=== PATIENT | female | born 1950 | race Caucasian/White ===

== ENCOUNTER 2020-04-21 05:31 | Day surgery (SDC) | payer MEDICARE ==
[2020-04-18 16:21] VITALS: BMI 26.4
[~2020-04-21 05:31] MED LIST: ACETAMINOPHEN TAB 500 MG TAB PO ONE; GABAPENTIN 300 MG CAP PO ONE; MELOXICAM 7.5 MG TAB PO ONE; ONDANSETRON 4 MG/2 ML VIAL IVP ONE; TRANEXAMIC ACID 1,000 MG in SODIUM CHLORIDE 0.9% 100 ML IVPB ONE
[2020-04-21] MEDS ORDERED: HYDROmorphone 0.5 MG/0.5 ML SYRINGE IVP PRN ×4 (05:33→09:04)
[2020-04-21] MEDS ORDERED: ONDANSETRON 4 MG/2 ML VIAL IVP ONE ×2 (05:33→11:05)
[2020-04-21] MEDS ORDERED: LACTATED RINGERS 1,000 ML IV SCH (05:33)
[2020-04-21] MEDS ORDERED: DEXAMETHASONE SOD PHOSPHATE 10 MG/ML 1 ML VIAL IV ONE (05:33)
[2020-04-21] MEDS ORDERED: MIDAZOLAM 2 MG/2 ML VIAL IV PRN (05:33)
[2020-04-21] MEDS ORDERED: ONDANSETRON 4 MG/2 ML VIAL ONE (05:51)
[2020-04-21] MEDS ORDERED: ACETAMINOPHEN TAB 500 MG TAB ONE (05:51)
[2020-04-21] MEDS ORDERED: ROPIVACAINE 246.25 MG, EPINEPHrine 0.5 MG, KETOROLAC 30 MG, cloNIDine HCL/PF 80 MCG, WA... MISCELLANE ONE ×5 (06:00)
[2020-04-21] MEDS ORDERED: LIDOCAINE 1% (10MG/ML) FOR IV START INTRADERMA ONE (06:04)
[2020-04-21] MEDS ORDERED: MIDAZOLAM 2 MG/2 ML VIAL IV ONE (06:52)
[2020-04-21] MEDS ORDERED: SCOPOLAMINE 1.5MG/72HR PATCH TRANSDERM ONE (07:00)
[2020-04-21] MEDS ORDERED: PHENYLEPHRINE-0.9% NACL SYG 1 MG/10 ML SYRINGE ONE (07:02)
[2020-04-21] MEDS ORDERED: MIDAZOLAM 2 MG/2 ML VIAL ONE (07:02)
[2020-04-21] MEDS ORDERED: PROPOFOL 10 MG/ML 20 ML VIAL IV ONE (07:02)
[2020-04-21] MEDS ORDERED: diphenhydrAMINE 50 MG/ML 1 ML VIAL ONE (07:02)
[2020-04-21] MEDS ORDERED: ceFAZolin 3,000 MG in SODIUM CHLORIDE 0.9% IRRIGATIO 3,000 ML IRRIGATION ONE (08:00)
[2020-04-21] MEDS ORDERED: LACTATED RINGERS 1,000 ML IV ONE (08:26)
[2020-04-21] MEDS ORDERED: ROPIVACAINE 0.2%-NS ON-Q PUMP 1,090 MG, EMPTY PAIN BALL 1 EACH MISCELLANE PRN (09:03)
[2020-04-21] MEDS ORDERED: NA PHOS,M-B/NA PHOS,DI-BA 133 ML ENEMA RECTAL PRN (09:04)
[2020-04-21] MEDS ORDERED: HYDROcodone/APAP 10-325MG 1 EACH TAB PO PRN (09:04)
[2020-04-21] MEDS ORDERED: ONDANSETRON 4 MG/2 ML VIAL IVP PRN (09:04)
[2020-04-21] MEDS ORDERED: MAGNESIUM HYDROXIDE 2,400 MG/10 ML CUP PO PRN (09:04)
[2020-04-21] MEDS ORDERED: NALOXONE 0.4 MG/ML 1 ML VIAL IV PRN (09:04)
[2020-04-21] MEDS ORDERED: diazePAM 5 MG TAB PO PRN (09:04)
[2020-04-21] MEDS ORDERED: bisacodyL 10 MG SUPP RECTAL PRN (09:04)
[2020-04-21] MEDS ORDERED: traMADol 50 MG TAB PO PRN (09:04)
[2020-04-21] MEDS ORDERED: HYDROcodone/APAP 5-325MG 1 EACH TAB PO PRN (09:04)
[2020-04-21] MEDS ORDERED: ACETAMINOPHEN TAB 325 MG TAB PO PRN (09:04)
[2020-04-21] MEDS ORDERED: TEMAZEPAM 15 MG CAP PO PRN (09:04)
--- NOTE | 2020-04-21 09:11 | P.ANPRN ---
Procedure Note - Anesthesia - Nerve Block Performed Right Adductor Canal Infusion Time Out Performed: Yes Date of Procedure: 04/21/20 Procedure Start Time: 06:42 Procedure Stop Time: 06:54 Location of Patient: PreOp Indication: Acute Post-Operative Pain, Requested by Surgeon Sedation Type: Sedate with meaningful contact maintained Preparation: Sterile Prep, Sterile Dressing Position: Supine Catheter: Indwelling Needle Types: UniServityy Needle Gauge: 18 Ultrasound used to visualize needle placement: Yes Ultrasound used to observe medication spread: Yes Injectate: 0.5% Ropivacaine (see comment for volume) (20 ml) Blood Aspirated: No Pain Paresthesia on Injection Noted: No Resistance on Injection: Normal Image Stored and Saved: Yes Events: Uneventful and Well Tolerated
--- NOTE | 2020-04-21 10:00 | XR ---
Right knee HISTORY: Status post right knee arthroplasty 2 views the right knee Patient is status post right knee arthroplasty. There is anatomic alignment. Lucency is present in th e soft tissues. IMPRESSION: Orthopedic follow-up
--- NOTE | 2020-04-21 11:03 | OP ---
OPERATIVE REPORT DATE OF PROCEDURE: 04/21/2020 SURGEON: Ritchie Steiner M.D. MANUFACTURING COORDINATOR: ADELAIDE Quintana. PREOPERATIVE DIAGNOSIS: Right knee osteoarthrosis. POSTOPERATIVE DIAGNOSIS: Right knee osteoarthrosis. OPERATION: Right total knee arthroplasty. ANESTHESIA: Spinal with sedation. ESTIMATED BLOOD LOSS: 100 mL. TOURNIQUET: Tourniquet time was 49 minutes at 250 mmHg. COMPLICATIONS: None apparent. DRAINS: None. DISPOSITION: Postanesthesia care unit. INDICATIONS: Chana is a very pleasant 69-year-old female with longstanding right knee pain. History and physical examination are consistent with advanced right knee osteoarthrosis. She has been through significant nonoperative management up to this point. Further treatment options were discussed and she has decided to go forward with a right total knee arthroplasty. Risks of procedure were discussed with her in detail. These risks include, but are not limited to risk of infection, nerve damage, bleeding, pain, and a small risk of deep vein thrombosis which could lead to fatal pulmonary embolism. There is also risk of loosening of the implant which could require revision operation. The patient understands these risks. All of her questions were answered to her satisfaction. Appropriate informed consent was obtained. DESCRIPTION OF PROCEDURE: The patient was identified in preop holding area. Surgical site was marked by both the patient and myself. She was given 2 g of Ancef IV for prophylactic purposes. She was then transferred to the operative suite. She was placed supine on the operating room table. Spinal anesthetic was then administered and dosed per the Anesthesia Department without apparent complication. Examination under anesthesia was then performed. The patient was 2-3 degrees shy of full extension. She had 100 degrees of flexion. The medial collateral ligament, lateral collateral ligament and posterior cruciate ligaments were stable. Tourniquet was then placed high on the right upper thigh, well-padded in preparation for surgery. The patient's right lower extremity was then prepped and draped in usual sterile fashion. Standard surgical pause was undertaken to ensure that we were operating on the correct site and that appropriate preoperative antibiotics had been given. All staff in room were in agreement and we proceeded. The outlines of the patella were marked with a surgical pen. A planned 12 cm vertical incision centered over the patella was marked with surgical pen. Leg was exsanguinated with an Esmarch dressing. The knee was then flexed and the tourniquet was inflated to 250 mmHg. The total tourniquet time for the procedure was 49 minutes. Incision was then made with a 10 blade scalpel. Dissection was carried down sharply to the overlying fascia. Great care was taken to minimize the skin flaps. The knee was then exposed using a standard medial parapatellar approach. A small cuff of quadriceps tendon was then left for suturing. She was in a bit of varus preoperatively. A standard medial release was then made. Superficial medial collateral ligament was dissected off the bone around to the posterior aspect of the proximal tibia. The medial meniscus was then excised as well. The lateral meniscus was also released anteriorly. The leg was then externally rotated. The patella was everted and the knee was flexed. Retractors were then placed to protect the collateral ligaments. I then proceeded to remove the infrapatellar fat pad. This was excised sharply tangentially with the fibers of the patellar tendon. I then proceeded to remove peripheral osteophytes. This is done with a rongeur. I then proceed with distal femoral resection. She did have near full extension. The planned 9 mm resection was then done. The femoral canal was then entered in the midline of the femur approximately 10 mm anterior to the origin of the posterior cruciate ligament. The rodolfo was then advanced onto the center of the femur and placed intramedullary. Based on the preoperative radiographs, the angle between the anatomic and mechanical axis of the femur was approximately 4-5 degrees. The valgus angle of the distal femoral cutting guide was then set at 4 degrees for the right knee. The distal femoral cutting guide was then advanced over the intramedullary rodolfo. This was seated firmly against the femur. Then as mentioned, planned to take 9 mm off the distal femur. The cutting block was then secured onto the femur with pins. The jig was then removed. The distal femoral cut was made through the slot of the block. The pins were then removed. The distal femoral cutting block was removed. The accuracy of the distal femoral cuts was checked with 2 flat bars. I then proceed with femoral sizing. Posterior referencing sizing guide was held firmly against the resected distal surface of the femur. The posterior condyles were resting on the posterior plane of the guide. The sizing stylus was then placed onto the anterior femur. The size was measured as a size 7. I then assessed for femoral rotation. Plan was for 3 degrees external rotation. Three degrees external rotation was placed onto the jig. These holes were then marked. I then confirmed the rotation by 3 separate methods. First this was done using epicondylar axis as well as Whitesides line and posterior referencing and it was deemed that the external rotation was proper. I then went forward with placing the femoral cutting block. This was placed over the previously placed pin holes. The Hayden wing was then placed on the anterior slots to ensure that we would not notch the anterior femur with the anterior femoral cut. I then proceed with the anterior femoral cut. This was flush with the anterior cortex of the femur. Posterior cuts were then made followed by the anterior chamfer cut, then the posterior chamfer cut. The cutting block was then removed. Throughout the resection, the collateral ligaments were protected with retractors. We then placed a trial size 7 femur. It was slightly wide but the narrow fit very nicely medial-lateral and was flush with the distal end of the femur. The drill holes were then made. I then proceeded with the tibial cut. I planned for cruciate retaining knee. The guide was placed and set for varus, valgus and for slope. The height set for approximate 2 mm resection from the medial tibial plateau which was the lower side. I was happy with the alignment and amount of resection. The cutting block was then pinned to the proximal tibia. The alignment rodolfo was removed. The proximal tibia was resected with a reciprocating saw. Again this was done with retractors protecting the collateral ligaments as well as the posterior cruciate ligament. I then proceeded to evaluate the flexion and extension gaps. A 10 mm block was then placed. The flexion-extension gaps were equal. I then proceeded with resection of posterior osteophytes. She had very minimal posterior osteophytes. This is done using a curved osteotome. This resected the posterior osteophytes. Posterior capsule stripping was done off the posterior aspect of the femur at this time. The osteophytes were then removed. I then proceed to resection of patella. The thickness of the patella was measured using the caliper. The thickness was 22 mm. The thickness of the anticipated patellar dome was taken into account. Resection was then performed and confirmed to be equal in 4 quadrants using a caliper. Approximately 14 mm of bone remained after resection. A 29 x 8 standard patellar trial was then placed. The holes were drilled. The trial was then placed. I then proceeded with sizing tibial plate. A size D tibial plate fit very nicely. I then placed the trial femur, the tibial tray and patellar button. A 10 mm trial tibial insert was also placed. The components fit very nicely. She had full extension and flexion. The extension and flexion gaps were equal and stable to varus and valgus stress. The patella tracked appropriately. Tibial tray rotation was marked with a Bovie. This was externally rotated properly. I then proceed with tibial preparation. I first drilled the femoral holes and removed femoral component. The tibial tray was then set for proper external rotation as well as mediolateral placement onto the tibia. It was then pinned into place. I then proceed with punching the keel. I then decided to proceed with cementing of all of our components. The knee was thoroughly irrigated with sterile saline solution via pulse lavage. The lateral geniculate artery was identified and cauterized. All blood was removed from the bone of the tibia, femur and patella with pulse lavage. I then proceed with cementing. Two packs of antibiotic bone cement prepared on the back table by the surgical dressing maker. I then proceed with cementing the tibia first. The cement was impacted into the keel as well as deeply seated in the bone. A second coat of cement was then placed. The tibia was then impacted into place. Excess cement was removed with Carlton's and Joker's. I then proceed with cementing of the femoral component. The femoral component was also cemented using standard technique. Excess cement was removed. A 10 mm trial insert was then placed into the knee. It was brought into full extension. A constant axial load placed until the cement had hardened. The patellar component was then cemented. This was held firmly with a compressive device until the cement had dried. When the cement had dried, the knee was taken out of extension. All excess cement was removed from around the prosthesis. I then trialed the knee with a 10 mm insert. Flexion extension gaps were appropriate. The knee was stable. It came into full extension. I decided to go forward with a 10 mm cross-linked cruciate-retaining tibial insert. Polyethylene was then placed onto the tray and locked into place. The knee was then reduced. The knee was again further irrigated with sterile saline solution with antibiotic added. The tourniquet was then deflated. Total tourniquet time for the procedure was 49 minutes at 250 mmHg. Final components were Abdiel Persona size 7 narrow cruciate-retaining femoral component, size D tibial tray, a 10 mm medial congruent cruciate-retaining polyethylene insert and a 29 x 8 patella. I then proceeded with closure. Again, the knee was thoroughly irrigated. The quadriceps tendon and the medial retinaculum were reapproximated with #2 Ethibond suture. The extensor mechanism was then closed with a running #2 Quill suture. Subcutaneous tissues were closed with 2-0 Vicryl interrupted suture. The skin was closed with a running 3-0 Quill suture. Dermabond applied to the knee. Sterile compressive dressing was then applied. All sponge and needle counts were deemed correct prior to closure. The patient tolerated the procedure without apparent complication. She was transferred to the recovery room in stable conditions. MMODL / IJN: [id number] /
[2020-04-21] MEDS: LACTATED RINGERS 1,000 ML IV SCH ×2 (11:48→20:28)
--- NOTE | 2020-04-21 16:30 | P.CONS ---
History of Present Illness - Reason for Consult Recommendations regarding antihypertensive medications - History of Present Illness Patient is a pleasant 69-year-old female admitted for elective right knee arthroplasty, patient underwent surgery did not pass gas. Did not move her bowel yet. Denied any fever chills nausea vomiting diarrhea doesn't have a Short catheter doesn't have a surgical drainage at this time. Patient does have history of hypertension blood pressure is bit elevated even postoperative period patient is on losartan, propranolol which are being continued HIDA chlorothiazide will be held and patient is receiving IV fluids at this time. Review of Systems REVIEW OF SYSTEMS: CONSTITUTIONAL: No fever, no malaise, no fatigue. HEENT: No recent visual problems or hearing problems. Denied any sore throat. CARDIOVASCULAR: No chest pain, orthopnea, PND, no palpitations, no syncope. PULMONARY: No shortness of breath, no cough, no hemoptysis. GASTROINTESTINAL: No diarrhea, no nausea, no vomiting, no abdominal pain. NEUROLOGICAL: No headaches, no weakness, no numbness. HEMATOLOGICAL: Denies any bleeding or petechiae. GENITOURINARY: Denies any burning micturition, frequency, or urgency. MUSCULOSKELETAL/RHEUMATOLOGICAL: Denies any joint pain, swelling, or any muscle pain. ENDOCRINE: Denies any polyuria or polydipsia. The rest of the 14-point review of systems is negative. Past Medical History Past Medical History: GERD/Reflux, Hyperlipidemia, Hypertension, Osteoarthritis (OA) Additional Past Medical History / Comment(s): MIGRAINE HEADACHE History of Any Multi-Drug Resistant Organisms: None Reported Past Surgical History: Appendectomy, Hysterectomy Additional Past Surgical History / Comment(s): BILATERAL BUNIONECTOMY Past Anesthesia/Blood Transfusion Reactions: Postoperative Nausea & Vomiting (PONV) Additional Past Anesthesia/Blood Transfusion Reaction / Comm: SEVERE NAUSEA AND VOMITING Past Psychological History: No Psychological Hx Reported Smoking Status: Never smoker Past Alcohol Use History: None Reported Past Drug Use History: None Reported - Past Family History Mother Family Medical History: No Reported History Medications and Allergies Home Medications Medication Instructions Recorded Confirmed Type Hydrochlorothiazide [Hydrodiuril] 12.5 mg PO DAILY 04/18/20 04/21/20 History Losartan [Cozaar] 50 mg PO BID 04/18/20 04/21/20 History Propranolol [Inderal] 20 mg PO DAILY 07/13/20 07/16/20 History Simvastatin [Zocor] 40 mg PO HS 04/18/20 04/21/20 History Allergies Allergy/AdvReac Type Severity Reaction Status Date / Time No Known Allergies Allergy Verified 04/21/20 05:55 Physical Exam Vitals: Vital Signs Temp Pulse Resp BP Pulse Ox 04/21/20 14:04 64 16 132/74 95 04/21/20 12:47 98.4 F 64 16 138/89 96 04/21/20 11:30 69 16 142/79 97 04/21/20 11:15 62 16 123/67 97 04/21/20 11:00 62 16 129/63 95 04/21/20 10:46 63 16 138/67 96 04/21/20 10:30 60 16 123/68 96 04/21/20 10:16 64 16 149/65 97 04/21/20 10:05 66 16 138/63 04/21/20 09:47 65 16 145/63 99 04/21/20 09:30 58 L 16 159/65 99 04/21/20 09:15 62 16 115/74 94 L 04/21/20 08:54 97.4 F L 66 14 118/57 99 04/21/20 05:47 98.5 F 59 L 16 165/78 98 Intake and Output 04/21/20 04/21/20 04/21/20 06:59 14:59 22:59 Intake Total 300 1801 Output Total 100 Balance 300 1701 Intake: IV 300 1801 Output: Estimated Blood Loss 100 Other: # Voids 1 Weight 70.9 kg 70.9 kg PHYSICAL EXAMINATION: GENERAL: The patient is alert and oriented x3, not in any acute distress. Well developed, well nourished. HEENT: Pupils are round and equally reacting to light. EOMI. No scleral icterus. No conjunctival pallor. Normocephalic, atraumatic. No pharyngeal erythema. No thyromegaly. CARDIOVASCULAR: S1 and S2 present. No murmurs, rubs, or gallops. PULMONARY: Chest is clear to auscultation, no wheezing or crackles. ABDOMEN: Soft, nontender, nondistended, normoactive bowel sounds. No palpable organomegaly. MUSCULOSKELETAL: Deferred to orthopedic surgery EXTREMITIES: No cyanosis, clubbing, or pedal edema. NEUROLOGICAL: Gross neurological examination did not reveal any focal deficits. SKIN: No rashes. Assessment and Plan Plan: -Hypertension: Continue propranolol and losartan hold off hydrochlorothiazide to prevent perioperative hypotension -Gastroesophageal reflux disease -Hyperlipidemia Right knee arthroplasty: Due to prophylaxis. Aspirin 81 mg twice a day
[2020-04-21] MEDS: LOSARTAN 50 MG TAB PO SCH (20:28)
[2020-04-21] MEDS: ASPIRIN 81 MG PO SCH (20:29)
[2020-04-21] MEDS ORDERED: ATORVASTATIN 20 MG TAB PO SCH (21:00)
[2020-04-21] MEDS ORDERED: SENNOSIDES-DOCUSATE SODIUM 1 EACH TAB PO SCH (21:00)
[2020-04-22] MEDS: LACTATED RINGERS 1,000 ML IV SCH (05:51)
--- NOTE | 2020-04-22 06:55 | P.PN ---
Progress Note - Text Progress Note Date: 04/22/20 Patient without complaints. Pain controlled. Denies leg weakness. Catheter site clean and dry A/P POD#1 s/p R TKA - doing well
[2020-04-22 07:17] VITALS: BP 107/67; RESP 16; TEMP 97.7
[2020-04-22 07:51] VITALS: PULSE 71
[2020-04-22] MEDS: LOSARTAN 50 MG TAB PO SCH (07:51)
[2020-04-22] MEDS: ASPIRIN 81 MG PO SCH (07:54)
[2020-04-22 08:46] LABS: Basophils % (A) 0 %; Eosinophils % (A) 0 %; HGB 12.9 gm/dL (11.4-16.0); Lymphocytes # (A) 0.9 k/uL (1.0-4.8); Lymphocytes % (A) 10 %; MCH 31.5 pg (25.0-35.0); MCHC 33.9 g/dL (31.0-37.0); MCV 93.2 fL (80.0-100.0); Mean Platelet Volume 8.2; Monocytes # (A) 0.6 k/uL (0-1.0); Monocytes % (A) 7 %; Neutrophils # (A) 7.1 k/uL (1.3-7.7); Neutrophils % (A) 81 %; Platelet Count 191 k/uL (150-450); RBC 4.08 m/uL (3.80-5.40); RDW 12.8 % (11.5-15.5); WBC 8.7 k/uL (3.8-10.6)
[2020-04-22] MEDS ORDERED: PROPRANOLOL 20 MG TAB PO SCH (09:00)
[2020-04-22] MEDS ORDERED: HYDROcodone/APAP 10-325MG 1 EACH TAB PO PRN ×2 (11:15)
--- NOTE | 2020-04-22 11:15 | P.PN ---
Subjective Progress Note Date: 04/22/20 Principal diagnosis: Right TKA Patient is seen at bedside this morning. She is postop day #1 from right total knee arthroplasty. She has pain at the surgical site as expected but denies any new complaints. He denies numbness, tingling or calf pain. Review of systems is negative for fever, chills, chest pain, shortness of breath or other Objective - Vital Signs Vital signs: Vital Signs Temp 97.7 F 04/22/20 07:00 Pulse 71 04/22/20 08:00 Resp 16 04/22/20 08:00 BP 107/67 04/22/20 07:00 Pulse Ox 99 04/22/20 07:00 Intake & Output 04/21/20 04/22/20 04/22/20 18:59 06:59 18:59 Intake Total 1801 900 320 Output Total 100 Balance 1701 900 320 Weight 70.9 kg Intake: IV 1801 Intake, IV Titration 300 Amount Lactated Ringers 1,000 ml 300 @ 100 mls/hr IV .Q10H LILLY Rx#:[id number] Oral 600 320 Output: Estimated Blood Loss 100 Other: Voiding Method Toilet Toilet Toilet # Voids 1 2 - Exam Inspection reveals a benign surgical wound. There is no active bleeding or drainage. Neurovascular status is intact throughout the lower extremity with motor and sensation fully intact. Calf is soft and nontender. 2+ dorsalis pedis pulse and less than 2 second cap refill is present. - Constitutional General appearance: Present: no acute distress - Labs CBC & Chem 7: 04/22/20 07:53 Labs: Abnormal Lab Results - Last 24 Hours (Table) 04/22/20 Range/Units 07:53 Lymphocytes # 0.9 L (1.0-4.8) k/uL Assessment and Plan (1) S/P total knee arthroplasty Narrative/Plan: She will continue with routine postop orthopedic protocol including pain management, wound care, PT, DVT prophylaxis and medical management. Will work on improving her pain control today. Expect that she will transfer to home tomorrow Current Visit: Yes Status: Acute Priority: Medium Code(s): Z96.659 - PRESENCE OF UNSPECIFIED ARTIFICIAL KNEE JOINT SNOMED Code(s): 3786482958011 Time with Patient: Less than 30
--- NOTE | 2020-04-22 11:19 | P.DS ---
Providers Expected date of discharge: 04/22/20 Attending physician: Ritchie Steiner Consults: 04/21/20 09:04 Consult Physician Routine Consulting Provider: Enzo Askew Consult Reason/Comments: post op medical management Do you want consulting provider notified?: Yes Primary care physician: Frank Arcos - Discharge Diagnosis(es) (1) S/P total knee arthroplasty Patient was admitted to the OR on 04/22/2020 to undergo a right total knee arthroplasty. She had failed conservative measures as an outpatient and desired to proceed with elective surgery after given informed consent. She underwent the above procedure which she tolerated well without complication. Postoperative hospital course has remained without complication. On day of discharge she is afebrile, vital signs stable, labs within acceptable ranges, tolerating by mouth meds and diet, voiding without difficulty, positive flatus, denies abdominal pain or calf pain, pain is controlled on oral pain medication and has no new com plaints. Wound is benign, neurovascular status is intact, calf is soft and nontender, abdomen soft and nontender. Review of systems is negative for numbness, tingling, fever, chills, chest pain, shortness of breath, nausea, vomiting, dizziness, headaches, slurred speech or other. Current Visit: Yes Status: Acute Priority: Medium Procedures: Right TKA Patient Condition at Discharge: Good Plan - Discharge Summary Discharge Rx Participant: Yes New Discharge Prescriptions: New Aspirin [Adult Low Dose Aspirin EC] 81 mg PO BID #60 tablet. HYDROcodone/APAP 7.5-325MG [Eden 7.5-325] 1 - 2 each PO Q6HR PRN #56 tab PRN Reason: Pain Metaxalone [Skelaxin] 800 mg PO TID PRN #21 tab PRN Reason: Spasms No Action Simvastatin [Zocor] 40 mg PO HS Losartan [Cozaar] 50 mg PO BID Hydrochlorothiazide [Hydrodiuril] 12.5 mg PO DAILY Propranolol [Inderal] 20 mg PO DAILY Discharge Medication List Hydrochlorothiazide [Hydrodiuril] 12.5 mg PO DAILY 04/18/20 [History] Losartan [Cozaar] 50 mg PO BID 04/18/20 [History] Propranolol [Inderal] 20 mg PO DAILY 04/18/20 [History] Simvastatin [Zocor] 40 mg PO HS 07/13/20 [History] Aspirin [Adult Low Dose Aspirin EC] 81 mg PO BID #60 tablet. 04/22/20 [Rx] HYDROcodone/APAP 7.5-325MG [Eden 7.5-325] 1 - 2 each PO Q6HR PRN #56 tab 04/22/20 [Rx] Metaxalone [Skelaxin] 800 mg PO TID PRN #21 tab 04/22/20 [Rx] Follow up Appointment(s)/Referral(s): [facility], [NON-STAFF] - As Needed Ritchie Steiner MD [STAFF PHYSICIAN] - 05/02/20 1:05 pm Activity/Diet/Wound Care/Special Instructions: Keep wound clean and dry Take meds as directed Follow-up with Dr. Steiner in office Weight bear as tolerated May shower in 3 days if no bleeding Discharge Disposition: HOME WITH HOME HEALTH SERVICES
[2020-04-22] MEDS ORDERED: MULTIVITAMINS, THERA 1 EACH TAB PO SCH (12:00)
--- NOTE | 2020-04-22 13:27 | P.PN ---
Subjective Patient is clinically doing well. Is being discharged today medically stable to be discharge medication to [facility] was reviewed and patient was asked to hold off on hydrochlorothiazide and patient was asked to hold on losartan as well for today tomorrow and depending on the blood pressure day after she can resume losartan. Beta coby will be continued Constitutional: Denied any fatigue denied any fever. Cardio vascular: denied any chest pain, palpitations Gastrointestinal denied any nausea vomiting Pulmonary: Denied any shortness of breath cough Neurologic denied any new focal deficits All inpatient medications were reviewed and appropriate changes in these medications as dictated in the interval history and assessment and plan. Objective - Vital Signs Vital signs: Vital Signs Temp 97.7 F 04/22/20 07:00 Pulse 71 04/22/20 08:00 Resp 16 04/22/20 08:00 BP 107/67 04/22/20 07:00 Pulse Ox 99 04/22/20 07:00 Intake & Output 04/21/20 04/22/20 04/22/20 18:59 06:59 18:59 Intake Total 1801 900 320 Output Total 100 Balance 1701 900 320 Weight 70.9 kg Intake: IV 1801 Intake, IV Titration 300 Amount Lactated Ringers 1,000 ml 300 @ 100 mls/hr IV .Q10H LILLY Rx#:[id number] Oral 600 320 Output: Estimated Blood Loss 100 Other: Voiding Method Toilet Toilet Toilet # Voids 1 2 - Exam PHYSICAL EXAMINATION: GENERAL: The patient is alert and oriented x3, not in any acute distress. Well developed, well nourished. HEENT: Pupils are round and equally reacting to light. EOMI. No scleral icterus. No conjunctival pallor. Normocephalic, atraumatic. No pharyngeal erythema. No thyromegaly. CARDIOVASCULAR: S1 and S2 present. No murmurs, rubs, or gallops. PULMONARY: Chest is clear to auscultation, no wheezing or crackles. ABDOMEN: Soft, nontender, nondistended, normoactive bowel sounds. No palpable organomegaly. MUSCULOSKELETAL: No joint swelling or deformity. EXTREMITIES: No cyanosis, clubbing, or pedal edema. NEUROLOGICAL: Gross neurological examination did not reveal any focal deficits. SKIN: No rashes. - Labs CBC & Chem 7: 04/22/20 07:53 Labs: Abnormal Lab Results - Last 24 Hours (Table) 07/17/20 Range/Units 07:53 Lymphocytes # 0.9 L (1.0-4.8) k/uL Assessment and Plan Plan: -Hypertension: Discharge and evidence of medication management as mentioned above -Gastroesophageal reflux disease -Hyperlipidemia Right knee arthroplasty: DVT prophylaxis. Aspirin 81 mg twice a day
== END 2020-04-22 12:47 | disposition home health service (06) ==
LOC: OR 05:31 → 4SSUR 08:54 → OR 04-22 12:47
PROVIDERS: ATTEND Orthopaedic Surgery Sports Medicine
DX: M17.0 Bilateral primary osteoarthritis of knee (principal); I10 Essential (primary) hypertension; E78.5 Hyperlipidemia, unspecified; K21.9 Gastro-esophageal reflux disease without esophagitis; G43.909 Migraine, unspecified, not intractable, without status migrainosus; R73.03 Prediabetes; Z79.899 Other long term (current) drug therapy; Z90.49 Acquired absence of other specified parts of digestive tract; Z90.710 Acquired absence of both cervix and uterus; Z98.890 Other specified postprocedural states; Z88.4 Allergy status to anesthetic agent; Z83.3 Family history of diabetes mellitus; Z82.49 Family history of ischemic heart disease and other diseases of the circulatory system
CPT/HCPCS: 97116; 97110; 97161; 64448; 76942; 85025; 88300; 73560; 27447; C1776; C1713; J2250; J0171; J1200; J1100; J0690 ×2; J2405; J1885; J2795 ×2; J2370; J2704; J0735; J1170